=== PATIENT | female | born 1940 | race African-American/Black ===

== ENCOUNTER 2020-07-12 19:08 | Emergency (ER) | payer MEDICAID, OTHER ==
[~2020-07-12] VITALS: Ht 157.5 cm; Wt 72.0 kg
[2020-07-12] MEDS ORDERED: SODIUM CHLORIDE 0.9% 1,000 ML IV ONE ×2 (19:45→22:30)
[2020-07-12 22:42] LABS: BASOPHILS % 0.3 % (0.0-2.0); EOSINOPHILS % 0.5 % (0.0-5.0); HEMATOCRIT. 36.9 % (36.0-48.0); HEMOGLOBIN. 12.3 g/dL (12.0-16.0); LYMPHOCYTES % 8.2 % (20.0-50.0); MEAN CORPUSCULAR HEMOGLOBIN 31.6 pg (28.0-32.0); MEAN PLATELET VOLUME 9.8 fl (7.4-10.4); MONOCYTES % 8.3 % (2.0-8.0); NEUTROPHILS % 82.7 % (40.0-76.0); PLATELET 241 x1000/uL (130-400); RED BLOOD CELL COUNT 3.88 mill/uL (4.2-5.4); RED CELL DISTRIBUTION WIDTH 14.2 % (11.6-14.6)
[2020-07-12 22:49] LABS: CHLORIDE 98 mEq/L (98-107)
[2020-07-12 22:51] LABS: PROTHROMBIN TIME 10.8 sec (9.6-11.0)
[2020-07-12 22:54] LABS: ETHANOL BLOOD < 10 mg/dL
[2020-07-13] MEDS ORDERED: INSULIN LISPRO 100 UNITS/ML SUBCUT ONE (01:00)
[2020-07-13 04:00] VITALS: BP 160/83
== END 2020-07-13 04:29 | disposition short-term general hospital (02) ==
LOC: ER 19:08 → CANBEDREQ 07-13 06:09
DX: R53.1 Weakness (principal); R41.82 Altered mental status, unspecified; E11.65 Type 2 diabetes mellitus with hyperglycemia; R00.0 Tachycardia, unspecified; I10 Essential (primary) hypertension; Z79.4 Long term (current) use of insulin
CPT/HCPCS: 36415; 70450; 80053; 80320; 82010; 84484; 85025; 85610; 93005; 96360; 96372; 99285; J1815; J7030; G0480